=== PATIENT | female | born 1990 | race Caucasian/White ===

== ENCOUNTER → 2016-08-15 | Outpatient (CLI) | payer OTHER ==
[2016-08-15 18:14] LABS: Basophils % (A) 1 %; CH 31.6; CHCM 34.6; Eosinophils % (A) 1 %; HCT 41.9 % (34.0-46.0); HDW 2.49; HGB 13.9 gm/dL (11.4-16.0); Luc # (Auto) 0.11; Luc % (Auto) 2; Lymphocytes # (A) 1.5 k/uL (1.0-4.8); Lymphocytes % (A) 26 %; MCH 30.4 pg (25.0-35.0); MCHC 33.2 g/dL (31.0-37.0); MCV 91.6 fL (80.0-100.0); Mean Platelet Volume 7.6; Monocytes # (A) 0.3 k/uL (0-1.0); Monocytes % (A) 5 %; Neutrophils # (A) 3.7 k/uL (1.3-7.7); Neutrophils % (A) 66 %; RBC 4.57 m/uL (3.80-5.40); WBC 5.6 k/uL (3.8-10.6); WBC (Perox) 6.17
[2016-08-15 18:28] LABS: Non-African American GFR(MDRD) >60 (>60 ml/min/1.73 sqM)
== END | disposition home or self-care (01) ==
LOC: LABPAT 17:12
PROVIDERS: ATTEND Urology
DX: N20.0 Calculus of kidney (principal)
CPT/HCPCS: 36415; 82565; 85025

== ENCOUNTER 2016-08-22 12:35 | Day surgery (SDC) | payer OTHER ==
[2016-08-17 15:33] VITALS: BMI 19.1
[~2016-08-22 12:35] MED LIST: LACTATED RINGERS 1,000 ML IV SCH
--- NOTE | 2016-08-22 12:43 | XR ---
EXAMINATION TYPE: XR KUB DATE OF EXAM: 08/22/2016 12:27 PM CLINICAL DATA: 26-year-old female right-sided kidney stone, prelithotripsy, [facility] COMPARISON: 12/27/2010 FINDINGS: Mild to moderate scattered stool. Nonobstructive bowel gas pattern. Bowel content largely obscures th e renal shadows. IMPRESSION: Bowel content largely obscures the renal shadows.
[2016-08-22 12:52] VITALS: TEMP 98.8
[2016-08-22] MEDS ORDERED: IV FLUID CONTINUATION 1,000 ML IV ONE (13:48)
[2016-08-22 13:52] VITALS: BP 110/75; PULSE 82; RESP 18
--- NOTE | 2016-08-23 09:00 | PCN ---
DATE OF PROCEDURE: 08/22/2016 DESCRIPTION OF THE PROCEDURE: Fluoroscopy of left kidney. The patient is 26-year-old female with a history of urolithiasis who was discovered to have 2 calculi in the lower pole of the right kidney on a recent CT scan. The calculi measured 3 and 5 mm in diameter. Treatment options reviewed with Dr. Coleman and the patient has elected to proceed with ESWL. Unfortunately, her preop KUB did not clearly identify the calculi, partially due to overlying bowel gas. Fluoroscopy is planned to determine whether or not ESWL can be performed. PROCEDURE: The patient was placed in the supine position on the fluoroscopy table. Using biplanar fluoroscopy, the region of the right kidney was examined but a definite calculus or calculi could never be identified. No anesthesia was given. ESWL will be canceled and the patient will not need to be treated with ureteroscopy with lithotripsy at a later date. [facility]uan [facility]
== END 2016-08-22 14:03 | disposition home or self-care (01) ==
LOC: ORWHC2ENDO 12:35
PROVIDERS: ATTEND Urology
DX: N20.0 Calculus of kidney (principal); Z53.8 Procedure and treatment not carried out for other reasons
CPT/HCPCS: 74000

== ENCOUNTER → 2022-06-24 | Outpatient (CLI) | payer OTHER ==
--- NOTE | 2022-06-24 16:09 | XR ---
Paranasal sinuses. HISTORY: Headache and facial pain COMPARISON: None. TECHNIQUE: 4 views of the paranasal sinuses were obtained. LUNGS: The paranasal sinuses are well aerated and there are no air-fluid levels or mucosal thickening. The o sseous structures are intact. IMPRESSION: No significant abnormality seen.
== END | disposition home or self-care (01) ==
LOC: RADXRYALE 15:37
PROVIDERS: ATTEND Family Medicine
DX: R51.9 Headache, unspecified (principal); G50.1 Atypical facial pain
CPT/HCPCS: 70220

== ENCOUNTER → 2022-07-22 | Outpatient (CLI) | payer OTHER ==
--- NOTE | 2022-07-24 21:37 | CT ---
EXAMINATION TYPE: CT sinus wo con, CT orbits wo con CT DLP: 800.9 mGycm, Automated exposure control for dose reduction was used. DATE OF EXAM: 07/22/2022 5:27 PM COMPARISON: None. CLINICAL INDICATION:Female, 32 years old with history of G50.1 ATYPICAL FACIAL PAIN, J32.1, Chronic s inusitis. TECHNIQUE: Multiple thin axial images were obtained through the paranasal sinuses and orbits without the use of IV contrast. Additional coronal and sagittal reformatted images were submitted for evaluat ion. Contrast used: none Oral contrast used: none FINDINGS: Frontal sinuses: Normally developed and aerated. Frontal Recess: Clear Modified [place]-Jeanne Score: Right 0 = 0% Opacified, Left 0 = 0% Opacified Maxillary Sinuses: Normally developed and aerated. Modified [place] Score: Right 0 = 0% Opacified, Left 0 = 0% Opacified Maxillary Infundibula([facility]): Clear, left Trevon cell identified without narrowing of the infundibula.. Modified [place]-Jeanne Score: Right 0 = Completely patent, Left 0 = Completely patent Ethmoid sinuses: Normally developed and aerated. Ethmoidal notch: Unprotected bilateral anterior ethm oidal arteries. Modified Jose-Jeanne Score: Anterior Right 0 = 0% Opacified, Left 0 = 0% Opacified Posterior Right 0 = 0% Opacified, Left 0 = 0% Opacified Sphenoid sinuses: Normally developed and aerated. There is sellar sphenoid sinus pneumatization witho ut evidence of dehiscence. No dehiscence of carotid canal. No evidence of optic nerve dehiscence wit hin the sphenoid sinus. No evidence of Onodi cells. Sphenoethmoidal recesses: Clear. Modified Jose-Jeanne Score: Right 0 = 0% Opacified, Left 0 = 0% Opacified. Nasal septum: Within normal limits.. Nasal Turbinates: Within normal limits. A sedrick bullosa defect is seen involving the right middle tu rbinate. Mastoid air cells & middle ears: The air cells are clear. The middle ears are grossly unremarkable. Modified Soft tissues & Brain: Partially seen without gross abnormality. Orbits: Intraconal extraconal fat are symmetric. The globes are intact. No orbital fracture. Other: Cribriform plate demonstrates symmetric Keros classification type 2 cribriform plate. No evidence of bony dehiscence of skull base. Lamina papyracea is intact without evidence of remote orbital fracture or orbital prolapse into the e thmoid sinus. IMPRESSION: 1. No significant mucosal sinus disease. 2. The ostiomeatal units, frontonasal and sphenoethmoidal recesses are clear. 3. Opacification burden of 0/54 on the Modified [place]-Jeanne scoring system. 4. Symmetric orbits without evidence of fracture, the globes are intact. Intra and extraconal fat are intact.
== END | disposition home or self-care (01) ==
LOC: RADCTMAIN 16:44
PROVIDERS: ATTEND Family Medicine
DX: J34.89 Other specified disorders of nose and nasal sinuses (principal); G50.1 Atypical facial pain; J32.1 Chronic frontal sinusitis; R51.9 Headache, unspecified
CPT/HCPCS: 70480; 70486

== ENCOUNTER → 2022-12-02 | Outpatient (CLI) | payer OTHER ==
--- NOTE | 2022-12-02 16:17 | XR ---
EXAMINATION TYPE: XR lumbosacral spine min 4V DATE OF EXAM: 12/02/2022 CLINICAL HISTORY: pain COMPARISON: NONE TECHNIQUE: Frontal, lateral, and oblique images of the lumbar spine are obtained. FINDINGS: There are 5 lumbar type vertebral bodies identified. The lumbar spine shows satisfactory alignment without evidence of acute fracture or dislocation. Vertebral body heights are within normal limits. Disc spaces are well preserved. The overlying soft tissue appears unremarkable. IMPRESSION: No acute fracture or dislocation is seen in the lumbar spine.ICD 10 NO FRACTURE, INITIAL EVALUATION
== END | disposition home or self-care (01) ==
LOC: RADXRYALE 16:03
PROVIDERS: ATTEND Family Medicine
DX: M54.50 Low back pain, unspecified (principal)
CPT/HCPCS: 72110

== ENCOUNTER → 2024-04-23 | Outpatient (CLI) | payer OTHER ==
--- NOTE | 2024-04-23 18:03 | XR ---
EXAMINATION TYPE: XR sinus DATE OF EXAM: 04/23/2024 5:04 PM CLINICAL INDICATION: Female, 33 years old with history of R0981,J343,J320 NASAL CONGESTION,CHRONIC SI NUSITIS; [facility] COMPARISON: 06/24/2023 TECHNIQUE: the sinuses were evaluated in frontal, lateral and Rausch. FINDINGS: There is no radiopaque foreign body identified. The adjacent paranasal sinuses are well aerated an wi thout evidence of intra-cavitary fluid accumulation. The nasal bridge appears intact. The mandible ap pears intact. Mastoid air cells are well aerated. The frontal sinus and maxillary sinuses are well aerated. IMPRESSION: No evidence of significant paranasal sinus disease. Consider CT sinus for complete evaluation of the sinuses. [facility], , 04/23/2024 6:00 PM
== END | disposition home or self-care (01) ==
LOC: RADXRYALE 16:45
PROVIDERS: ATTEND Family Medicine
CPT/HCPCS: 70220

== ENCOUNTER 2024-11-28 18:28 | Emergency (ER) | payer OTHER ==
--- NOTE | 2024-11-28 18:56 | ED ---
Abdominal Pain HPI - General Chief Complaint: Abdominal Pain Stated Complaint: Abd/Pelvic Pain Time Seen by Provider: 11/28/24 18:39 Source: patient, family Mode of arrival: ambulatory Limitations: no limitations - History of Present Illness Initial Comments: This patient is a 34-year-old woman who presents with complaint of left lower quadrant pain that has been going on for nearly 3 weeks now. The patient notes that it is aching sometimes sharp. She has been seen at urgent care twice, at [place] [facility], and by Dr. Bliss. She states that she was told she had an ovarian cyst that had burst. She states that the pain continues and theref ore she presents for reevaluation. The patient does not have fever or chills. No vomiting. She does have urine with a strong odor she says. MD Complaint: abdominal pain Onset/Timin -: week(s) Location: LLQ Radiation: back Migration to: no migration Severity: moderate Quality: cramping, aching Consistency: intermittent Improves With: nothing Worsens With: nothing Associated Symptoms: other - Related Data Home Medications Medication Instructions Recorded Confirmed Doxycycline [Vibramycin] 50 mg PO BID 08/17/16 08/22/16 Previous Rx's Medication Instructions Recorded HYDROcodone/APAP 5-325MG [[place] 1 tab PO Q6H PRN 3 Days #12 tab 11/28/24 5-325] Allergies Allergy/AdvReac Type Severity Reaction Status Date / Time adhesive tape Allergy Rash/Hives Verified 11/28/24 18:36 Review of Systems ROS Statement: Those systems with pertinent positive or pertinent negative responses have been documented in the HPI. ROS Other: All systems not noted in ROS Statement are negative. Constitutional: Denies: fever, chills Respiratory: Denies: cough, dyspnea Cardiovascular: Denies: chest pain, palpitations, edema Gastrointestinal: Reports: abdominal pain. Denies: nausea, vomiting, diarrhea, constipation, melena, hematochezia Genitourinary: Denies: dysuria, frequency, hematuria, discharge, abnormal menses Musculoskeletal: Denies: back pain Skin: Denies: rash Neurological: Denies: headache, weakness Past Medical History Past Medical History: Neurologic Disorder Additional Past Medical History / Comment(s): ovaarion cyst Past Surgical History: Appendectomy Additional Past Surgical History / Comment(s): nasal surgery Smoking Status: Never smoker General Exam Limitations: no limitations General appearance: alert, in no apparent distress Head exam: Present: atraumatic, normocephalic Eye exam: Present: normal appearance. Absent: scleral icterus, conjunctival injection ENT exam: Present: normal oropharynx Neck exam: Present: normal inspection Respiratory exam: Present: normal lung sounds bilaterally. Absent: respiratory distress, wheezes, rales, rhonchi, stridor, accessory muscle use Cardiovascular Exam: Present: regular rate, normal rhythm, normal heart sounds. Absent: systolic murmur, diastolic murmur, rubs, gallop GI/Abdominal exam: Present: soft, tenderness. Absent: distended, guarding, rebound, rigid, mass, pulsatile mass, hernia Extremities exam: Present: normal inspection, normal capillary refill. Absent: pedal edema, calf tenderness Back exam: Present: normal inspection. Absent: CVA tenderness (R), CVA tenderness (L) Neurological exam: Present: alert Skin exam: Present: warm, dry, intact, normal color. Absent: rash Course Vital Signs 11/28/24 11/28/24 18:31 21:42 Temperature 97.7 F 97.9 F Pulse Rate 105 H 82 Respiratory 20 18 Rate Blood Pressure 126/85 126/74 O2 Sat by Pulse 97 96 Oximetry Medical Decision Making - Medical Decision Making The patient had abdominal ultrasound that I interpreted as negative for evidence of ovarian torsion. Was pt. sent in by a medical professional or institution (Dr. PA, AUTOMATIC PROFILE SHAPER OPERATOR, urgent care, hospital, or group home...) When possible be specific @ -[No] Did you speak to anyone other than the patient for history (EMS, parent, family, police, friend...)? What history was obtained from this source @ -[No] Did you review nursing and triage notes (agree or disagree)? Why? @ -[I reviewed and agree with nursing and triage notes] Were old charts reviewed (outside hosp., previous admission, EMS record, old EKG, old radiological studies, urgent care reports/EKG's, group home records)? Report findings @ -[No old charts were reviewed] Differential Diagnosis (chest pain, altered mental status, abdominal pain women, abdominal pain men, vaginal bleeding, weakness, fever, dyspnea, syncope, headache, dizziness, GI bleed, back pain, seizure, CVA, palpatations, mental health, musculoskeletal)? @ -[Differential Abdominal Pain Women: Appendicitis, Cholecystitis, diverticulosis, ischemic bowel, pancreatitis, hepatitis, UTI, gastroenteritis, AAA, incarcerated hernia, bowel obstruction, constipation, inflammatory bowel, hepatitis, peptic ulcer disease, splenic infarction, perforated viscus, vulvitis, ovarian torsion, PID, kidney stone, placenta abruption, this is not meant to be an all-inclusive list EKG interpreted by me (3pts min.). @ -[As above] X-rays interpreted by me (1pt min.). @ -[None done] CT interpreted by me (1pt min.). @ -[None done] U/S interpreted by me (1pt. min.). @ -[I interpreted as above What testing was considered but not performed or refused? (CT, X-rays, U/S, labs)? Why? @ -[None] What meds were considered but not given or refused? Why? @ -[None] Did you discuss the management of the patient with other professionals (professionals i.e. , PA, AUTOMATIC PROFILE SHAPER OPERATOR, lab, RT, psych nurse, certified social workers in health care, hand meat salter, teacher, conservation enforcement officer, protective services case worker)? Give summary @ -[No] Was smoking cessation discussed for >3mins.? @ -[No] Was critical care preformed (if so, how long)? @ -[No] Were there social determinants of health that impacted care today? How? (Homelessness, low income, unemployed, alcoholism, drug addiction, transportation, low edu. Level, literacy, decrease access to med. care, fpc, rehab)? @ -[No] Was there de-escalation of care discussed even if they declined (Discuss DNR or withdrawal of care, Hospice)? DNR status @ -[No] What co-morbidities impacted this encounter? (DM, HTN, Smoking, COPD, CAD, Cancer, CVA, ARF, Chemo, Hep., AIDS, mental health diagnosis, sleep apnea, morbid obesity)? @ -[None] Was patient admitted / discharged? Hospital course, mention meds given and route, prescriptions, significant lab abnormalities, going to OR and other pertinent info. @ -[Patient is 34-year-old woman here with pelvic and left lower quadrant pain. The patient declined gynecologic exam. The ultrasound does not show evidence of torsion. At this point will have patient follow-up with gynecology. Discussed appropriate further care and follow-up as well as return parameters Undiagnosed new problem with uncertain prognosis? @ -[No] Drug Therapy requiring intensive monitoring for toxicity (Heparin, Nitro, Insulin, Cardizem)? @ -[No] Were any procedures done? @ -[No] Diagnosis/symptom? @ -[Acute abdominal pain Ovarian cyst Acute, or Chronic, or Acute on Chronic? @ -[Acute Uncomplicated (without systemic symptoms) or Complicated (systemic symptoms)? @ -Uncomplicated Side effects of treatment? @ -[No] Exacerbation, Progression, or Severe Exacerbation? @ -[No] Poses a threat to life or bodily function? How? (Chest pain, [place], [place], pneumonia, PE, COPD, DKA, ARF, appy, cholecystitis, CVA, Diverticulitis, Homicidal, Suicidal, threat to staff... and all critical care pts) @ -[No] All treatments are based on ideal body weight as in ED triage - Lab Data Result diagrams: 11/28/24 19:09 11/28/24 19:09 Lab Results 11/28/24 11/28/24 11/28/24 Range/Units 19:09 19:09 19:09 WBC 8.23 (4.50-10.00) 10*3/uL RBC 4.55 (4.10-5.20) 10*6/uL Hgb 14.4 (12.0-15.0) g/dL Hct 41.9 (37.2-46.3) % MCV 92.1 (80.0-97.0) fL MCH 31.6 (27.0-32.0) pg MCHC 34.4 (32.0-37.0) g/dL Plt Count 223 (140-440) 10*3/uL MPV 10.6 (9.5-12.2) fL Immature Gran % (Auto) 0.4 % Neutrophils % 82.7 % Lymphocytes % 11.9 % Monocytes % 4.5 % Eosinophils % 0.1 % Basophils % 0.4 % Immature Gran # 0.03 (0.00-0.04) 10*3/uL Neutrophils # 6.81 (1.80-7.70) 10*3/uL Lymphocytes # 0.98 (0.90-5.00) 10*3/uL Monocytes # 0.37 (0.20-1.00) 10*3/uL Eosinophils # 0.01 L (0.04-0.35) 10*3/uL Basophils # 0.03 (0.00-0.10) 10*3/uL Sodium 137 (137-145) mmol/L Potassium 4.0 (3.5-5.1) mmol/L Chloride 103 (98-107) mmol/L Carbon Dioxide 24 (22-30) mmol/L Anion Gap 10 mmol/L BUN 16 (7-17) mg/dL Creatinine 0.63 (0.52-1.04) mg/dL Est GFR (CKD-EPI)AfAm >90 (>60 ml/min/1.73 sqM) Est GFR (CKD-EPI)NonAf >90 (>60 ml/min/1.73 sqM) Glucose 170 H (74-99) mg/dL Plasma Lactic Acid Олег (0.7-2.0) mmol/L Calcium 10.0 (8.4-10.2) mg/dL Total Bilirubin 0.6 (0.2-1.3) mg/dL AST 18 (14-36) U/L ALT 12 (4-34) U/L Alkaline Phosphatase 59 (38-126) U/L C-Reactive Protein <0.5 (<1.0) mg/dL Total Protein 7.1 (6.3-8.2) g/dL Albumin 4.5 (3.5-5.0) g/dL Amylase 53 (30-110) U/L Lipase 75 (23-300) U/L Urine Color Urine Appearance (Clear) Urine pH (5.0-8.0) Ur Specific [place] (1.001-1.035) Urine Protein (Negative) Urine Glucose (UA) (Negative) Urine Ketones (Negative) Urine Blood (Negative) Urine Nitrite (Negative) Urine Bilirubin (Negative) Urine Urobilinogen (<2.0) mg/dL Ur Leukocyte Esterase (Negative) Urine RBC (0-5) /hpf Urine WBC (0-5) /hpf Ur Squamous Epith Cells (0-4) /hpf Urine Bacteria (None) /hpf Urine Mucus (None) /hpf Urine HCG, Qual Not Detected (Not Detectd) Chlamydia DNA (PCR) (Negative) N.gonorrhoeae DNA Probe (Negative) 11/28/24 11/28/24 11/28/24 Range/Units 19:09 19:11 20:45 WBC (4.50-10.00) 10*3/uL RBC (4.10-5.20) 10*6/uL Hgb (12.0-15.0) g/dL Hct (37.2-46.3) % MCV (80.0-97.0) fL MCH (27.0-32.0) pg MCHC (32.0-37.0) g/dL Plt Count (140-440) 10*3/uL MPV (9.5-12.2) fL Immature Gran % (Auto) % Neutrophils % % Lymphocytes % % Monocytes % % Eosinophils % % Basophils % % Immature Gran # (0.00-0.04) 10*3/uL Neutrophils # (1.80-7.70) 10*3/uL Lymphocytes # (0.90-5.00) 10*3/uL Monocytes # (0.20-1.00) 10*3/uL Eosinophils # (0.04-0.35) 10*3/uL Basophils # (0.00-0.10) 10*3/uL Sodium (137-145) mmol/L Potassium (3.5-5.1) mmol/L Chloride (98-107) mmol/L Carbon Dioxide (22-30) mmol/L Anion Gap mmol/L BUN (7-17) mg/dL Creatinine (0.52-1.04) mg/dL Est GFR (CKD-EPI)AfAm (>60 ml/min/1.73 sqM) Est GFR (CKD-EPI)NonAf (>60 ml/min/1.73 sqM) Glucose (74-99) mg/dL Plasma Lactic Acid Олег 1.7 (0.7-2.0) mmol/L Calcium (8.4-10.2) mg/dL Total Bilirubin (0.2-1.3) mg/dL AST (14-36) U/L ALT (4-34) U/L Alkaline Phosphatase (38-126) U/L C-Reactive Protein (<1.0) mg/dL Total Protein (6.3-8.2) g/dL Albumin (3.5-5.0) g/dL Amylase (30-110) U/L Lipase (23-300) U/L Urine Color Light Yellow Urine Appearance Cloudy H (Clear) Urine pH 6.0 (5.0-8.0) Ur Specific [place] 1.019 (1.001-1.035) Urine Protein Negative (Negative) Urine Glucose (UA) Negative (Negative) Urine Ketones Trace H (Negative) Urine Blood Negative (Negative) Urine Nitrite Negative (Negative) Urine Bilirubin Negative (Negative) Urine Urobilinogen <2.0 (<2.0) mg/dL Ur Leukocyte Esterase Negative (Negative) Urine RBC 3 (0-5) /hpf Urine WBC 3 (0-5) /hpf Ur Squamous Epith Cells 16 H (0-4) /hpf Urine Bacteria Rare H (None) /hpf Urine Mucus Many H (None) /hpf Urine HCG, Qual (Not Detectd) Chlamydia DNA (PCR) Negative (Negative) N.gonorrhoeae DNA Probe Negative (Negative) Disposition Clinical Impression: Pelvic pain, Ovarian cyst Disposition: HOME SELF-CARE Condition: Good Instructions (If sedation given, give patient instructions): Ovarian Cyst (ED) Prescriptions: HYDROcodone/APAP 5-325MG [[place] 5-325] 1 tab PO Q6H PRN 3 Days #12 tab PRN Reason: Pain Is patient prescribed a controlled substance at d/c from ED?: No Referrals: Ishmael Bliss DO [Primary Care Provider] - 1-2 days Amari Tejeda MD [STAFF PHYSICIAN] - 1-2 days
[2024-11-28 19:19] LABS: Basophils # (A) 0.03 10*3/uL (0.00-0.10); Basophils % (A) 0.4 %; Eosinophils # (A) 0.01 10*3/uL (0.04-0.35); Eosinophils % (A) 0.1 %; HCT 41.9 % (37.2-46.3); HGB 14.4 g/dL (12.0-15.0); Lymphocytes # (A) 0.98 10*3/uL (0.90-5.00); Lymphocytes % (A) 11.9 %; MCH 31.6 pg (27.0-32.0); MCHC 34.4 g/dL (32.0-37.0); MCV 92.1 fL (80.0-97.0); Mean Platelet Volume 10.6 fL (9.5-12.2); Monocytes # (A) 0.37 10*3/uL (0.20-1.00); Monocytes % (A) 4.5 %; Neutrophils # (A) 6.81 10*3/uL (1.80-7.70); Neutrophils % (A) 82.7 %; Platelet Count 223 10*3/uL (140-440); RBC 4.55 10*6/uL (4.10-5.20); RDW 11.7 % (11.5-14.5); WBC 8.23 10*3/uL (4.50-10.00)
[2024-11-28 19:40] LABS: Appearance,Urine Cloudy (Clear); Bacteria,Urine Rare /hpf; Bilirubin,Urine Negative (Negative); Blood,Urine Negative (Negative); Color,Urine Light Yellow; Glucose,Urine (UA) Negative (Negative); Ketones,Urine Trace (Negative); Leukocyte Esterase,Urine Negative (Negative); Mucus,Urine Many /hpf; Nitrite,Urine Negative (Negative); Protein,Urine Negative (Negative); RBC,Urine 3 /hpf (0-5); Specific Gravity,Urine 1.019 (1.001-1.035); Squamous Epithelial Cell,Urine 16 /hpf (0-4); Urobilinogen,Urine <2.0 mg/dL (<2.0); WBC,Urine 3 /hpf (0-5)
[2024-11-28 19:46] LABS: ALT 12 U/L (4-34); AST 18 U/L (14-36); African American GFR (CKD) >90 (>60 ml/min/1.73 sqM); Albumin 4.5 g/dL (3.5-5.0); Alkaline Phosphatase 59 U/L (38-126); Amylase 53 U/L (30-110); Anion Gap 10 mmol/L; Blood Urea Nitrogen 16 mg/dL (7-17); C Reactive Protein <0.5 mg/dL (<1.0); Carbon Dioxide 24 mmol/L (22-30); Chloride 103 mmol/L (98-107); Glucose 170 mg/dL (74-99); Lipase 75 U/L (23-300); Non-African American GFR(CKD) >90 (>60 ml/min/1.73 sqM); Sodium 137 mmol/L (137-145); Total Bilirubin 0.6 mg/dL (0.2-1.3); Total Protein 7.1 g/dL (6.3-8.2)
[2024-11-28] MEDS: SODIUM CHLORIDE 0.9% 500 ML 500 ML IV STA (19:46)
[2024-11-28] MEDS: KETOROLAC 15 MG/ML 1 ML VIAL IVP STA (19:47)
--- NOTE | 2024-11-28 20:04 | XR ---
EXAMINATION TYPE: XR KUB DATE OF EXAM: 11/28/2024 COMPARISON: KUB radiograph 08/22/2016 HISTORY: Abdominal pain TECHNIQUE: Single upright KUB image of the abdomen is obtained FINDINGS: Small bowel demonstrates no evidence for dilatation or air fluid levels. Gas and fecal material is seen in non-distended colon. No convincing evidence for pneumoperitoneum. No unusual calcifications. The lung bases are clear. The osseous structures are intact. IMPRESSION: Overall nonobstructive bowel gas pattern. [facility], , 11/28/2024 8:01 PM
--- NOTE | 2024-11-28 20:06 | US ---
EXAMINATION TYPE: US pelvic complete DATE OF EXAM: 11/28/2024 COMPARISON: NONE CLINICAL INDICATION: Female, 34 years old with history of LLQ pain, possible torsion; patient states LLQ pain since mothers day. states 8-9/ 10 pain. Patient states she does not want transvaginal imagin g TECHNIQUE: Transabdominal (TA). Doppler imaging: Color Doppler Images were obtained. Spectral doppler images were obtained. FINDINGS: Date of LMP: states unsure of exact date, 2 key weeks ago EXAM MEASUREMENTS: Uterus: 5.7 x 3.8 x 4.1 cm Endometrial Stripe: 0.8 cm Right Ovary: 2.4 x 2.7 x 1.4 cm Left Ovary: 3.6 x 2.7 x 1.9 cm Slightly limited due to bladder undistended and lack of TV imaging 1. Uterus: Anteverted wnl as best seen 2. Endometrium: wnl as best seen 3. Right Ovary: wnl as best seen 4. Left Ovary: Possibly two different areas seen within: 1- 1.8 x 1.5, hypoechoic 2- 1.4 x 0.9cm, anechoic versus 1 larger area. Difficult to characterize due to limitations above Spectral, color and waveform doppler imaging shows good arterial and venous flow within the ovaries ; there is no evidence for ovarian torsion. 5. Bilateral Adnexa: wnl as best seen 6. Posterior cul-de-sac: wnl as best seen Unremarkable anteverted uterus without focal lesion. Endometrium is within normal limits. Right ovary appears unremarkable without evidence for torsion. No left ovarian torsion. Follicular changes ident ified within left ovary. No free fluid. IMPRESSION: No ultrasound evidence for acute pelvic process within limitations of a transabdominal ex am. No evidence for ovarian torsion. [facility], , 11/28/2024 8:04 PM
[2024-11-28] MEDS: HYDROmorphone 0.5 MG/0.5 ML SYRINGE IVP STA (20:37)
[2024-11-28] MEDS: ACET/COD 300 MG/30 MG STARTER PACK 6 TAB BTL PO STA (21:41)
[2024-11-28 21:43] VITALS: BP 126/74; PULSE 82; RESP 18; TEMP 97.9
[2024-12-02 13:48] LABS: C. trachomatis,PCR Negative (Negative); N. gonorrhoeae,PCR Negative (Negative)
== END 2024-11-28 21:43 | disposition home or self-care (01) ==
LOC: EC 18:28
DX: N83.209 Unspecified ovarian cyst, unspecified side (principal); Z91.09 Other allergy status, other than to drugs and biological substances
CPT/HCPCS: 36415; 80053; 82150; 83605; 83690; 85025; 86140; 81001; 81025; 87491; 87591; 74018; 93975; 76856; 99284; 96374; 96375; J1885; J1171